=== PATIENT | male | born 1985 | race Caucasian/White ===

== ENCOUNTER 2018-07-22 08:57 | Emergency (ER) | payer OTHER ==
[~2018-07-22] VITALS: Ht 190.5 cm; Wt 106.6 kg
[2018-07-22 10:18] VITALS: BP 139/88
--- NOTE | 2018-07-22 11:12 | RAD ---
Three-view study left hand Clinical indications: Press pain down on left hand. Left hand trauma with left hand pain. FINDINGS: No acute fracture or dislocation or osteolytic process. IMPRESSION: No acute fracture. Electronically signed by: Regan Kelley MD (07/22/2018 11:08 AM) [facility]
--- NOTE | 2018-07-22 11:21 | PHYS DOC ---
Past Medical History Past Medical History: No Pertinent History Past Surgical History: Other Additional Past Surgical Histo: RIGHT FEMUR Alcohol Use: Occasionally Drug Use: None Adult General Chief Complaint Chief Complaint: HAND PROBLEM HPI HPI Patient is a 32 year old male presents for evaluation of left hand pain. He reports yesterday at work he dropped a shop press on his left hand. He has pain at the thenar aspect. Denies other injuries. Review of Systems Review of Systems Constitutional: Denies fever or chills [] Eyes: Denies change in visual acuity, redness, or eye pain [] HENT: Denies nasal congestion or sore throat [] Respiratory: Denies cough or shortness of breath [] Cardiovascular: No additional information not addressed in HPI [] GI: Denies abdominal pain, nausea, vomiting, bloody stools or diarrhea [] : Denies dysuria or hematuria [] Musculoskeletal: Denies back pain or joint pain [] Integument: Denies rash or skin lesions [] Neurologic: Denies headache, focal weakness or sensory changes [] Endocrine: Denies polyuria or polydipsia [] All other systems were reviewed and found to be within normal limits, except as documented in this note. Allergies Allergies Allergies Coded Allergies Type Severity Reaction Last Updated Verified No Known Drug Allergies 07/22/18 No Physical Exam Physical Exam Constitutional: Well developed, well nourished, no acute distress, non-toxic appearance. [] Skin: Warm, dry, no erythema, no rash. [] Back: No tenderness, no CVA tenderness. [] Extremities: Left hand tenderness at the thenar aspect, pain with active range of motion of the thumb. [] Neurologic: Alert and oriented X 3, normal motor function, normal sensory function, no focal deficits noted. [] Psychologic: Affect normal, judgement normal, mood normal. [] Current Patient Data Vital Signs Vital Signs Date Time Temp Pulse Resp B/P (MAP) Pulse Ox O2 Delivery O2 Flow Rate FiO2 07/22/18 10:18 97.7 70 16 139/88 (105) 100 Room Air 97.7 EKG EKG [] Radiology/Procedures Radiology/Procedures [PROCEDURE: HAND LEFT 3V Three-view study left hand Clinical indications: Press pain down on left hand. Left hand trauma with left hand pain. FINDINGS: No acute fracture or dislocation or osteolytic process. IMPRESSION: No acute fracture. Electronically signed by: Jerome Kelley MD (07/22/2018 11:08 AM) [facility] DICTATED and SIGNED BY: JEROME KELLEY MD DATE: 07/22/18 1107] Course & Med Decision Making Course & Med Decision Making Pertinent Labs and Imaging studies reviewed. (See chart for details) [X-ray negative, follow-up with primary care doctor 2-3 days.] Dragon Disclaimer Dragon Disclaimer This electronic medical record was generated, in whole or in part, using a voice recognition dictation system. Departure Departure Impression: Primary Impression: Contusion Disposition: HOME, SELF-CARE Patient Instructions: Contusion ASHLY CORONA [employer] Jul 22, 2018 11:21
== END 2018-07-22 12:19 | disposition home or self-care (01) ==
LOC: ER 08:57
DX: S60.222A Contusion of left hand, initial encounter (principal); W20.8XXA Other cause of strike by thrown, projected or falling object, initial encounter; Y93.89 Activity, other specified; Y92.89 Other specified places as the place of occurrence of the external cause; Y99.0 Civilian activity done for income or pay
CPT/HCPCS: 73130; 99283